=== PATIENT | male | born 1995 | race Asian ===

== ENCOUNTER 2019-01-21 03:19 | Emergency (ER) | payer OTHER ==
--- NOTE | 2019-01-21 03:36 | ED ---
Complex/Multi-Sys Presentation - HPI Summary HPI Summary: Patient is a 23 y/o M presenting to ED with chief complaint of sore throat. He states that sore throat onset 01/18/2019. He called [facility] with regards to this Sx, but he reports that he was told that it did not appear that his Sx were severe enough for him to be evaluated. He was advised to take Tylenol and ibuprofen. Today, patient was sleeping when he had an episode of inability to breath while sleeping, patient suddenly awoke during the night as a result. He called [facility] once more and was advised to come to ED for evaluation. He endorses dysphagia but denies fever and chills. PMHx of asthma is endorsed. He denies any known sick contacts but does note that he was on a plane recently. On triage, pain is rated 4/10. Home medications and allergies are reviewed. - History Of Current Complaint Chief Complaint: EDThroatPain Hx Obtained From: Patient Onset/Duration: Lasting Days, Still Present Timing: Intermittent, Lasting: - inability to breath Severity Currently: Moderate - 4/10 Location: Pain At: - throat Associated Signs And Symptoms: Positive: Other - positive - sore throat and dysphagia; negative - chills. Negative: Fever - Allergies/Home Medications Allergies/Adverse Reactions: Allergies Allergy/AdvReac Type Severity Reaction Status Date / Time No Known Allergies Allergy Verified 01/21/19 19:05 Home Medications: Home Medications Acetaminophen [Tylenol Extra Strength] 500 mg PO Q8HR PRN 01/21/19 [History Confirmed 01/21/19] Budesonide/Formote 160/4.5(NF) [Symbicort 160/4.5 (NF)] 1 puff INH DAILY [History Confirmed 01/21/19] Ibuprofen TAB* [Advil TAB*] 600 mg PO Q6H PRN 01/21/19 [History Confirmed ] Montelukast Sodium TAB* [Singulair 10 MG TAB*] 10 mg PO DAILY PRN 01/21/19 [ History Confirmed 01/21/19] PMH/Surg Hx/FS Hx/Imm Hx Respiratory History: Reports: Hx Asthma Sensory History: Denies: Hx Legally Blind, Hx Deafness Opthamlomology History: Denies: Hx Legally Blind EENT History: Denies: Hx Deafness Infectious Disease History: No Infectious Disease History: Denies: Traveled Outside the [place] in Last 30 Days - Family History Known Family History: Negative: Respiratory Disease - Social History Alcohol Use: None Substance Use Type: Reports: None Smoking Status (MU): Light Every Day Tobacco Smoker Review of Systems Negative: Fever, Chills ENT: Other - positive - dysphagia Positive: Sore Throat All Other Systems Reviewed And Are Negative: Yes Physical Exam - Summary Physical Exam Summary: Appearance: Well-appearing, Well-nourished, lying in bed comfortably Skin: Warm, dry, no obvious rash Eyes: sclera anicteric, no conjunctival pallor ENT: mucous membranes moist; no cervical adenopathy is noted. There is purulent exudate on both tonsils with some erythema of the tonsils. There is no significant swelling and no signs of a peritonsillar abscess Neck: Supple, nontender Respiratory: Clear to auscultation, no signs of respiratory distress Cardiovascular: Normal S1, S2. No murmurs. Normal distal pulses in tibial and radial bilaterally. Abdomen: Soft, nontender, normal active bowel sounds present Musculoskeletal: Normal, Strength/ROM Intact Neurological: A&Ox3, awake and alert, mentation is normal, speech is fluent and appropriate Psychiatric: affect is normal, does not appear anxious or depressed Triage Information Reviewed: Yes Vital Signs On Initial Exam: Initial Vitals Temp Pulse Resp BP Pulse Ox 97.8 F 80 16 134/89 98 01/21/19 03:21 01/21/19 03:21 01/21/19 03:21 01/21/19 03:21 01/21/19 03:21 Vital Signs Reviewed: Yes Diagnostics - Vital Signs Vital Signs Temp Pulse Resp BP Pulse Ox 01/21/19 03:21 97.8 F 80 16 134/89 98 - Laboratory Lab Statement: Any lab studies that have been ordered have been reviewed, and results considered in the medical decision making process. Complex Multi-Symp Course/Dx Course Of Treatment: Patient is a 23 y/o M presenting to ED with chief complaint of sore throat. He states that sore throat onset 01/18/2019. He called [facility] with regards to this Sx, but he reports that he was told that it did not appear that his Sx were severe enough for him to be evaluated. He was advised to take Tylenol and ibuprofen. Today, patient was sleeping when he had an episode of inability to breath while sleeping, patient suddenly awoke during the night as a result. He called [facility] once more and was advised to come to ED for evaluation. He endorses dysphagia but denies fever and chills. PMHx of asthma is endorsed. On physical exam, there is no cervical adenopathy is noted. There is purulent exudate on both tonsils with some erythema of the tonsils. There is no significant swelling and no signs of a peritonsillar abscess. Group A Strep Rapid was positive. Patient was given Penicillin G Benzathine 1,200,000 units IM in ED. He was discharged and advised to follow up with PCP within two days. - Diagnoses Provider Diagnoses: Strep throat Discharge ED - Sign-Out/Discharge Documenting (check all that apply): Patient Departure - discharge Patient Received Moderate/Deep Sedation with Procedure: No - Discharge Plan Condition: Stable Disposition: HOME Patient Education Materials: Strep Throat (ED) Forms: *School Release Referrals: [facility] [Outside] - 2 Days (if not improving) Additional Instructions: The injection of penicillin we gave you tonight should help clear out the infection, and I would expect your symptoms to be improving over the weekend. - Billing Disposition and Condition Condition: STABLE Disposition: Home - Attestation Statements Document Initiated by Gena: Yes Documenting Scribe: GEOVANNY GRIMES Provider For Whom Gena is Documenting (Include Credential): ASHLEY CABRERA MD Scribisaac Attestation: GEOVANNY Taylor, scribed for ASHLEY CABRERA MD on 01/22/19 at 0526. Scribe Documentation Reviewed: Yes Provider Attestation: The documentation as recorded by the GEOVANNY brewster accurately reflects the service I personally performed and the decisions made by me, ASHLEY CABRERA MD Status of Scribe Document: Viewed
[2019-01-21 03:48] LABS: Rapid Strep Molecular POSITIVE (Negative)
[2019-01-21] MEDS ORDERED: Penicillin G Benzathine 1.2MU* 1,200,000 UNITS/2 ML SYR IM ONE (03:59)
[2019-01-21 04:25] VITALS: BP 130/85
== END 2019-01-21 04:24 | disposition home or self-care (01) ==
LOC: ED 03:19
DX: J02.0 Streptococcal pharyngitis (principal); J45.909 Unspecified asthma, uncomplicated; F17.200 Nicotine dependence, unspecified, uncomplicated; Z79.899 Other long term (current) drug therapy
CPT/HCPCS: 87651; 96372; 99282; J0558

== ENCOUNTER 2019-01-21 18:53 | Emergency (ER) | payer OTHER ==
[2019-01-21 19:05] VITALS: BP 136/79
[2019-01-21] MEDS ORDERED: NS 0.9% 1000 ML** 1,000 ML BOLUS ONE (20:08)
[2019-01-21] MEDS ORDERED: Ketorolac INJ* 30 MG/ML 1 ML VIAL IV ONE (20:08)
[2019-01-21] MEDS ORDERED: Dexamethasone IV* 4 MG/ML 1 ML (4 MG) IV SLOW PU ONE (20:09)
--- NOTE | 2019-01-21 20:16 | UC ---
Throat Pain/Nasal Rolly HPI - HPI Summary HPI Summary: 23 yo male with severe sore throat x 2 days tested + for strep in early hours today at ER given IM PCN Has been have severe dysphagia despite NSAIDS no vomiting - History of Current Complaint Chief Complaint: UCRespiratory Stated Complaint: STREP Time Seen by Provider: 01/21/19 19:50 Hx Obtained From: Patient Onset/Duration: Gradual Onset, Lasting Days Severity: Severe Pain Intensity: 7 Pain Scale Used: 0-10 Numeric Cough: None - Epiglottits Risk Factors Epiglottis Risk Factors: Negative - Allergies/Home Medications Allergies/Adverse Reactions: Allergies Allergy/AdvReac Type Severity Reaction Status Date / Time No Known Allergies Allergy Verified 01/21/19 19:05 PMH/Surg Hx/FS Hx/Imm Hx Previously Healthy: Yes Respiratory History: Asthma - Surgical History Surgical History: None - Family History Known Family History: Positive: Non-Contributory Negative: Respiratory Disease - Social History Alcohol Use: Occasionally Substance Use Type: None Smoking Status (MU): Light Every Day Tobacco Smoker Review of Systems All Other Systems Reviewed And Are Negative: Yes Constitutional: Positive: Fever, Chills Skin: Positive: Negative Eyes: Positive: Negative ENT: Positive: Sore Throat Respiratory: Positive: Negative Cardiovascular: Positive: Negative Gastrointestinal: Positive: Negative Genitourinary: Positive: Negative Motor: Positive: Negative Neurovascular: Positive: Negative Musculoskeletal: Positive: Myalgia Neurological: Positive: Headache Psychological: Positive: Negative Physical Exam Triage Information Reviewed: Yes Appearance: Well-Appearing, No Pain Distress, Well-Nourished Vital Signs: Initial Vital Signs Temp 97.6 F 01/21/19 19:01 Pulse 73 01/21/19 19:01 Resp 18 01/21/19 19:01 BP 136/79 01/21/19 19:01 Pulse Ox 99 01/21/19 19:01 Vital Signs Reviewed: Yes Eyes: Positive: Conjunctiva Clear ENT: Positive: Hearing grossly normal, Pharyngeal erythema, Tonsillar swelling, Tonsillar exudate. Negative: Nasal congestion, Nasal drainage, Dental tenderness Neck: Positive: Supple, Nontender, Enlarged Nodes @ - anterior cervical adenopathy Respiratory: Positive: Lungs clear, Normal breath sounds, No respiratory distress, No accessory muscle use Cardiovascular: Positive: RRR, No Murmur Musculoskeletal: Positive: ROM Intact, No Edema Neurological: Positive: Alert Re-Evaluation - Re-Evaluation First Eval Re-Evaluation Time: 21:09 Change: Improved - notes some improvement Throat Pain/Nasal Course/Dx - Differential Dx/Diagnosis Provider Diagnosis: Strep throat, Dysphagia Discharge ED - Sign-Out/Discharge Documenting (check all that apply): Patient Departure All imaging exams completed and their final reports reviewed: No Studies - Discharge Plan Condition: Stable Disposition: HOME Referrals: No Primary Care Phys,NOPCP [Primary Care Provider] - Additional Instructions: I suggest if symptoms worsen you go to the ER recheck in 3 days if not better - Billing Disposition and Condition Condition: STABLE Disposition: Home
== END 2019-01-21 21:45 | disposition home or self-care (01) ==
LOC: UCEAST 18:53
DX: J02.0 Streptococcal pharyngitis (principal); R13.10 Dysphagia, unspecified; J45.909 Unspecified asthma, uncomplicated; F17.210 Nicotine dependence, cigarettes, uncomplicated
CPT/HCPCS: 96360; 96374; 96375; 96376; 99201; G0463; J1100; J1885